=== PATIENT | female | born 1955 | race Caucasian/White ===

== ENCOUNTER → 2017-11-12 08:38 | Outpatient (CLI) | payer BC, SELFPAY ==
--- NOTE | 2017-11-12 08:41 | MM_ITS ---
MM Dig screening mamm BI w/CAD CAD Screening COMPARISON: None, previous mammograms more than 12 years ago and they're not available for review INDICATION: There is history of breast cancer patient maternal grandmother TECHNIQUE: Standard CC and MLO images were obtained. R2 CAD reviewed. FINDINGS: Prominent heterogenic fiber glandular densities are seen in both breast. There is slightly asymmetrically increased glandular densities and/or ductal hyperplasia in the subareolar region of the right breast when compared to the left. Recommend the patient return for spot compression MLO and CC views of the subareolar region right breast and ultrasound may be necessary as well. There are mole markers on each breast. There are couple benign-appearing calcifications in each breast. There are no suspicious microcalcifications. IMPRESSION: Heterogenic fibroglandular densities with possible asymmetric densities right breast BI-RADS Category: 0 Need Additional Imaging Evaluation RECOMMENDED FOLLOW-UP: IMM - IMMEDIATE FOLLOW-UP RECOMMENDED (A letter has been sent to the patient regarding results of the study.)
== END ==
PROVIDERS: Family Provider Family Medicine; PCP Family Medicine; Visit Provider Family Medicine
DX: Z12.31 Encounter for screening mammogram for malignant neoplasm of breast (principal)
CPT/HCPCS: 77067

== ENCOUNTER → 2017-12-12 13:24 | Outpatient (CLI) | payer BC, SELFPAY ==
--- NOTE | 2017-12-12 13:30 | US_ITS ---
MM Dig mamm DX unilat RT CAD, US breast RT complete INDICATION: Follow-up abnormal mammogram ORDERING PHYSICIAN: Maverick Bosch MD PATIENT AGE: 62 years COMPARISON: 11/12/2017 TECHNIQUE: Spot compression views and right breast ultrasound FINDINGS: The asymmetric density in the retroareolar region on the right does appear to compress out as fibroglandular tissue. No malignant appearing mass or malignant appearing calcifications evident. Right breast ultrasound: No discrete mass. No suspicious findings. There is some ductal dilatation in the retroareolar region IMPRESSION: No evidence of malignancy. Asymmetric density in the retroareolar region does appear to represent fibroglandular tissue BI-RADS Category: 3 Probably Benign Finding Short Term Follow-up RECOMMENDED FOLLOW-UP: 6M - 6 MONTH FOLLOW-UP (A letter has been sent to the patient regarding results of the study.)
== END ==
PROVIDERS: Family Provider Family Medicine; PCP Family Medicine; Visit Provider Family Medicine
DX: R92.8 Other abnormal and inconclusive findings on diagnostic imaging of breast (principal)
CPT/HCPCS: 76641; 77065

== ENCOUNTER → 2019-02-05 08:36 | Outpatient (CLI) | payer BC, SELFPAY ==
--- NOTE | 2019-02-05 08:43 | MM_ITS ---
PROCEDURE: MM DIG SCREENING MAMM BI W/CAD CLINICAL INDICATION: SCREENING There is a history of breast cancer patient's paternal grandmother. COMPARISON: [facility] MM Dig screening mamm BI w/CAD from 11/12/2017 DXRT MM Dig mamm DX unilat RT CAD from 12/12/2017 TECHNIQUE: Standard CC and MLO images were obtained. R2 CAD reviewed. FINDINGS: Moderate diffuse fibroglandular densities are seen in both breast. There benign-appearing calcification in each breast. There are 2 mole markers left breast. There is a somewhat irregular asymmetric glandular density outer quadrant left breast just deep to the nipple. This was seen previously but shows slightly more irregular borders on today's study. Recommend the patient return for spot compression CC view and 90 degree lateral view and ultrasound may be necessary as well. There are no suspicious microcalcifications. IMPRESSION: Moderate diffuse breast density with possible asymmetric density versus architectural distortion left breast BI-RAD Category: 0 Need Additional Imaging Evaluation FOLLOW-UP: IMM Immediate Follow-up Recommended (A letter has been sent to the patient regarding results of the study.) Dictated by: Dr. Mk Otero MD 02/06/2019 15:[address] Mk Otero MD in [place] 02/06/2019 15:36
== END ==
PROVIDERS: PCP Family Medicine; Referring Provider Family Medicine; Visit Provider Family Medicine
DX: Z12.31 Encounter for screening mammogram for malignant neoplasm of breast (principal)
CPT/HCPCS: 77067

== ENCOUNTER → 2019-04-09 13:57 | Outpatient (CLI) | payer BC, SELFPAY ==
--- NOTE | 2019-04-09 14:05 | MM_ITS ---
PROCEDURE: MM DIG MAMM DX UNILAT LT CAD CLINICAL INDICATION: ABN MAMM Follow-up abnormal mammogram. COMPARISON: [facility] MM Dig screening mamm BI w/CAD from 11/12/2017 DXRT MM Dig mamm DX unilat RT CAD from 12/12/2017 MM DIG SCREENING MAMM BI W/CAD from 02/05/2019 US BREAST LT COMPLETE from 04/09/2019 TECHNIQUE: Problem solving views along with 3D tomography was performed. The the the FINDINGS: Report is delayed as the patient was asked to return for an additional view and was only able to return on 04/28/2019. The asymmetric density in the outer aspect of the left breast does appear to compress out as fibroglandular tissue. No malignant appearing mass or malignant-appearing microcalcification is evident. IMPRESSION: BI-RAD Category: 3 Probably Benign Finding Short Term Follow-up FOLLOW-UP: 6M 6Month Follow-up (A letter has been sent to the patient regarding results of the study.) Dictated by: uDtch Rodriguez MD 05/01/2019 07:36 Electronically signed by Dutch Rodriguez MD in [place] 05/01/2019 07:36
== END ==
PROVIDERS: PCP Family Medicine; Visit Provider Family Medicine
DX: R92.8 Other abnormal and inconclusive findings on diagnostic imaging of breast (principal)
CPT/HCPCS: 76641; 77061; 77065; G0279

== ENCOUNTER → 2019-04-29 11:04 | Outpatient (CLI) | payer BC, SELFPAY | PROVIDERS: PCP Family Medicine; Visit Provider Family Medicine | DX: R92.8 Other abnormal and inconclusive findings on diagnostic imaging of breast (principal) ==

== ENCOUNTER 2019-09-18 13:24 | Emergency (ER) | payer BC, SELFPAY ==
[2019-09-18 13:36] VITALS: BP 110/65; PULSE 76; RESP 20; TEMP 37; O2SAT 97; BMI 21.1
--- NOTE | 2019-09-18 13:36 | XR_ITS ---
PROCEDURE: XR HIP RT 2-3V W/PELVIS CLINICAL INDICATION: pain Posttraumatic pain COMPARISON: No exams were available for comparison FINDINGS: No fracture or dislocation is evident. No significant degenerative change. No lytic or blastic change. Unremarkable soft tissues. IMPRESSION: No acute findings. Dictated by: Dutch Rodriguez MD 09/19/2019 08:40 Electronically signed by Dutch Rodriguez MD in [place] 09/19/2019 08:40
--- NOTE | 2019-09-18 13:36 | XR_ITS ---
PROCEDURE: XR WRIST RT MIN 3V CLINICAL INDICATION: injury Posttraumatic pain COMPARISON: XR HAND RT MIN 3V from 09/18/2019 FINDINGS: There is a nondisplaced transverse fracture involving the distal radius approximately 1 cm proximal to the articular surface. There is some soft tissue swelling dorsally at the wrist. No other significant anomalies are evident. IMPRESSION: Nondisplaced the transverse fracture of the distal radius Dictated by: Dutch Rodriguez MD 09/19/2019 08:39 Electronically signed by Dutch Rodriguez MD in [place] 09/19/2019 08:39
--- NOTE | 2019-09-18 14:46 | HMH.EDUTC ---
[facility] [place] Disposition Clinical Impression: Right hip pain Fracture of right distal radius Qualifiers: Encounter type: initial encounter Fracture type: closed Fracture morphology: unspecified fracture morphology Qualified Code(s): S52.501A - Unspecified fracture of the lower end of right radius, initial encounter for closed fracture Fall Qualifiers: Encounter type: initial encounter Qualified Code(s): W19.XXXA - Unspecified fall, initial encounter Disposition: Home, Self-Care Condition on Discharge: Good Instructions: Wrist Fracture, DI for Wrist Fracture Additional Instructions: Rest the extremity, apply ice for 15 minutes as tolerated three or four times per day, Elevate the extremity as tolerated while you are resting. Take ibuprofen for pain. I sent in a prescription to your pharmacy. Follow up with Dr. Arce. I put in a referral but you need to call her office and schedule an appointment. Follow up with your regular doctor. GO TO THE ER FOR ANY WORSENING SYMPTOMS Prescriptions: Ibuprofen [Ibuprofen 600mg Tablet] 600 mg PO Q6HP PRN #30 tab PRN Reason: Mild Pain Transmission Status: Received by [id number] Referrals: Maverick Bosch MD [Primary Care Provider] - Zulay Arce MD [Physician] - Forms: Work/School Release Time of Disposition: 14:58 Medical Decision Making - Medical Records Medical records reviewed: No: I reviewed the patient's medical records. - Thomas Inquiry Pt receiving controlled substance: No Vital Signs: 09/18/19 13:36 09/18/19 15:02 Temperature 98.6 F 98.6 F Temperature Source Oral Pulse Rate 76 Pulse Rate [Left Brachial] 76 Respiratory Rate 20 20 Blood Pressure 110/65 Blood Pressure [Left Arm] 110/65 Blood Pressure Mean [Left Arm] 80 Blood Pressure Source [Left Arm] Automatic Cuff Blood Pressure Position [Left Arm] Sitting 02 Sat by Pulse Oximetry 97 Oxygen Delivery Method Room Air Orders (Tests/Meds): ED MEDICATIONS Discontinued Medications Generic Name Dose Route Start Last Admin Trade Name Freq PRN Reason Stop Dose Admin Ibuprofen 600 mg 09/18/19 14:45 09/18/19 14:46 Motrin 600mg Tablet PO 09/18/19 14:46 600 mg ONCE ONE Administration ORDERS Category Date Time Status Hip XR right minimum 2 views [XR hip RT 2-3V w/pelvis] Exams 09/18/19 13:36 Taken Stat Wrist XR right minimum 3 views [XR wrist RT min 3V] Exams 09/18/19 14:11 Taken Stat XR hand RT min 3V Stat Exams 09/18/19 13:36 Taken - Radiology Data #1 Image(s): Wrist Image Reviewed: Yes I reviewed the patient's radiology image Preliminary Findings: Abnormal #2 Image(s): Hand Image Reviewed: Yes I reviewed the patient's radiology image Preliminary Findings: Abnormal #3 Image(s): Hip Image Reviewed: Yes I reviewed the patient's radiology image Preliminary Findings: No Fracture Seen [facility] [place] HPI - General Stated complaint: AO 09/18/19 1130 Fell out of trailer, r hip & wrist Time Seen by Provider: 09/18/19 14:46 Mode of Arrival: Ambulatory Source of Information: Patient Limitations: No Limitations Description of Symptoms (Recalled from Triage Doc. by RN): PATIENT C/O RIGHT HIP, WRIST AND HAND PAIN AFTER FALLING OFF OF A TRAILOR WHILE PUTTING UP HAY HEENT Symptoms (Recalled from RN notes): No Resp Symptoms (Recalled from RN notes): No Skin Symptoms (Recalled from RN notes): No MS Symptoms (Recalled from RN notes): Yes Functional Status (Recalled from RN notes): WNL - History of Present Illness Provider Complaint: She was helping to load hay for her horses when she fell backwards off the trailer. She came down on her right forearm and hip. She c/o right wrist pain and swelling. - Related Data Previous Rx's Medication Instructions Recorded Ibuprofen [Ibuprofen 600mg 600 mg PO Q6HP PRN #30 tab 09/18/19 Tablet] Allergies Allergy/AdvReac Type Severity Reaction Status Date / Time N
[2019-09-18 15:02] VITALS: BP 110/65; PULSE 76; RESP 20; TEMP 37; O2SAT 97
== END 2019-09-18 15:06 | disposition home or self-care (01) ==
PROVIDERS: Emergency Provider Nurse Practitioner Family; PCP Family Medicine
DX: S52.501A Unspecified fracture of the lower end of right radius, initial encounter for closed fracture (principal); S70.01XA Contusion of right hip, initial encounter; W17.89XA Other fall from one level to another, initial encounter; Y92.73 Farm field as the place of occurrence of the external cause; F17.210 Nicotine dependence, cigarettes, uncomplicated
CPT/HCPCS: 29125; 73110; 73130; 73502; 99202

== ENCOUNTER → 2019-09-27 12:52 | Outpatient (CLI) | payer BC, SELFPAY ==
--- NOTE | 2019-09-27 12:55 | MM_ITS ---
PROCEDURE: MM DIG MAMM DX UNILAT LT CAD Digital Breast Tomosynthesis Included CLINICAL INDICATION: 6 MONTH FOLLOW UP COMPARISON: DXRT MM Dig mamm DX unilat RT CAD from 12/12/2017 MM DIG SCREENING MAMM BI W/CAD from 02/05/2019 US BREAST LT COMPLETE from 04/09/2019 MM DIG MAMM DX UNILAT LT CAD from 04/09/2019 US BREAST LT COMPLETE from 09/27/2019 TECHNIQUE: Standard CC and MLO images and 3D Tomosynthesis was obtained. R2 CAD reviewed. FINDINGS: Average fibroglandular tissue. No discrete mass or malignant-appearing microcalcification. The area of asymmetry in the outer aspect of the left breast does appear to compress out is fibroglandular tissue with no discrete mass evident on the tomogram images. Left breast ultrasound: No malignant mass apparent. No cyst evident. There was some slight decreased echogenicity in the 1 o'clock region left breast probably related to fibroglandular tissue. Continued six-month follow-up is suggested. Recommend bilateral mammogram in 6 months with left breast ultrasound IMPRESSION: BI-RAD Category: 3 Probably Benign Finding Short Term Follow-up FOLLOW-UP: 6M 6Month Follow-up (A letter has been sent to the patient regarding results of the study.) Dictated by: Dutch Rodriguez MD 10/01/2019 18:32 Electronically signed by Dutch Rodriguez MD in [place] 10/01/2019 18:32
== END ==
PROVIDERS: PCP Family Medicine; Visit Provider Family Medicine
DX: R92.8 Other abnormal and inconclusive findings on diagnostic imaging of breast (principal)
CPT/HCPCS: 76641; 77061; 77065; G0279

== ENCOUNTER → 2019-10-22 08:49 | Outpatient (CLI) | payer BC, SELFPAY ==
--- NOTE | 2019-10-22 08:52 | XR_ITS ---
PROCEDURE: XR WRIST RT MIN 3V CLINICAL INDICATION: RT wrist FX FU Follow-up fracture COMPARISON: CR XR WRIST RT MIN 3V from 09/18/2019 CR XR HAND RT MIN 3V from 09/18/2019 FINDINGS: There is periarticular osteopenia involving the distal aspect of the radius and the ulna. Nondisplaced fracture of the distal radius once again noted less apparent Other findings:None. IMPRESSION: Osteopenia with good alignment distal radial fracture Dictated b Dutch Rodriguez MD 10/22/2019 09:36 Dutch Rodriguez MD in [place] 10/22/2019 09:36
== END ==
PROVIDERS: PCP Family Medicine; Visit Provider Orthopaedic Surgery
DX: S52.501A Unspecified fracture of the lower end of right radius, initial encounter for closed fracture (principal)
CPT/HCPCS: 73110

== ENCOUNTER → 2019-11-26 09:12 | Outpatient (CLI) | payer BC, SELFPAY ==
--- NOTE | 2019-11-26 09:17 | XR_ITS ---
PROCEDURE: XR WRIST RT MIN 3V CLINICAL INDICATION: RT wrist FX Fu COMPARISON: CR XR WRIST RT MIN 3V from 09/18/2019 CR XR WRIST RT MIN 3V from 10/22/2019 FINDINGS: There is good alignment. There are mild osteoarthritic changes of the radiocarpal joint with some generalized osteopenia. Previously noted transverse fracture of the distal radius is not readily apparent on today's exam. Other findings:None. IMPRESSION: Healed distal radial fracture Dictated by: Dutch Rodriguez MD 11/26/2019 10:44 Dutch Rodriguez MD in [place] 11/26/2019 10:44
== END ==
PROVIDERS: PCP Family Medicine; Visit Provider Orthopaedic Surgery
DX: S52.501A Unspecified fracture of the lower end of right radius, initial encounter for closed fracture (principal)
CPT/HCPCS: 73110

== ENCOUNTER → 2020-05-19 13:43 | Outpatient (CLI) | payer BC, SELFPAY ==
--- NOTE | 2020-05-19 13:52 | US_ITS ---
PROCEDURE: MM DIG MAMM BI DX W/CAD Digital Breast Tomosynthesis Included CLINICAL INDICATION: 6 MON FOLLOW UP COMPARISON: [facility] MM Dig screening mamm BI w/CAD from 11/12/2017 MG DXRT MM Dig mamm DX unilat RT CAD from 12/12/2017 MG MM DIG SCREENING MAMM BI W/CAD from 02/05/2019 MG MM DIG MAMM DX UNILAT LT CAD from 04/09/2019 MG MM DIG MAMM DX UNILAT LT CAD from 09/27/2019 US US BREAST LT COMPLETE from 09/27/2019 US US BREAST LT COMPLETE from 05/19/2020 TECHNIQUE: Standard images performed along with spot compression views. FINDINGS: Average fibroglandular tissue. Scattered benign-appearing calcifications. Right breast: A 3 mm density is present in the superior aspect of the right breast as seen on the MLO view and may be slightly more prominent. This however is questionable Left breast: No malignant appearing mass. There is faint cluster of calcifications in the central aspect of the left breast as seen on the cc view. Left breast ultrasound: There is an area of decreased echogenicity once again noted at the 1 o'clock region which may be due to fibroglandular tissue not significantly changed. No suspicious mass is evident. No cyst demonstrated. IMPRESSION: Probably benign findings. Recommend bilateral 6 month follow-up regarding the nodular density in the right breast superiorly and the left breast calcifications. BI-RAD Category: 3 Probably Benign Finding Short Term Follow-up FOLLOW-UP: 6M 6Month Follow-up (A letter has been sent to the patient regarding results of the study.) Dictated by: Dutch Rodriguez MD 05/29/2020 09:57 Dutch Rodriguez MD in [place] 05/29/2020 09:57
== END ==
PROVIDERS: PCP Family Medicine; Visit Provider Family Medicine
DX: R92.8 Other abnormal and inconclusive findings on diagnostic imaging of breast (principal)
CPT/HCPCS: 76641; 77062; 77066; G0279

== ENCOUNTER → 2020-07-14 09:49 | Outpatient (CLI) | payer BC, SELFPAY ==
[2020-07-14 10:02] LABS: Adenovirus F 40/41, stool Not Detected (NotDetected); Astrovirus Not Detected (NotDetected); Campylobacter Not Detected (NotDetected); Clostridium Difficile A/B, PCR Not Detected (NotDetected); Cryptosporidium Not Detected (NotDetected); Cyclospora Cayetanesis Not Detected (NotDetected); Entamoeba histolytica Not Detected (NotDetected); Enteroaggregative E coli Not Detected (NotDetected); Enteropathogenic E coli Not Detected (NotDetected); Enterotoxigenic E coli Not Detected (NotDetected); Giardia lamblia Not Detected (NotDetected); Norovirus Not Detected (NotDetected); Plesimonas Shigalloides, PCR Not Detected (NotDetected); Rotavirus A Not Detected (NotDetected); Salmonella, PCR Not Detected (NotDetected); Sapovirus Not Detected (NotDetected); Shiga-like toxin E coli Not Detected (NotDetected); Shigella Enterovasive E coli Not Detected (NotDetected); Vibrio Cholerae Not Detected (NotDetected); Vibrio, PCR Not Detected (NotDetected); Yersinia Entercolitica, PCR Not Detected (NotDetected)
== END ==
PROVIDERS: Visit Provider Physician Assistant
DX: K52.9 Noninfective gastroenteritis and colitis, unspecified (principal)
CPT/HCPCS: 87507

== ENCOUNTER → 2020-07-24 08:43 | Outpatient (POV) | payer BC, SELFPAY | PROVIDERS: Visit Provider Nurse Practitioner Family | DX: Z00.00 Encounter for general adult medical examination without abnormal findings (principal) ==

== ENCOUNTER → 2020-08-21 08:37 | Outpatient (CLI) | payer BC, SELFPAY ==
--- NOTE | 2020-08-21 08:46 | CT_ITS ---
PROCEDURE: CT ABDOMEN PELVIS WO/W CON CLINICAL INDICATION: gross hematuria Rt flank pain No prior COMPARISON: No exams were available for comparison TECHNIQUE: IV Contrast: 75ML Isovue 370 Oral Contrast None Axial images obtained with sagittal and coronal reformats. All CT scans at the facility use one or more dose reduction, viz: automated exposure control, ma/kV adjustment per patient size (including targeted exams where dose is matched to indication, i.e. head), or iterative reconstruction technique. FINDINGS: LOWER THORAX: No acute finding ABDOMEN & PELVIS: There are several hypodensities of the liver which may be due to cyst. There are located in the left and right hepatic lobe measuring to 9 mm in the right hepatic lobe and 7 mm in the left hepatic lobe. The gallbladder, spleen, and adrenal glands have an unremarkable appearance. The pancreatic duct is slightly prominent measuring to 4 mm in the tail the pancreas. There is a focal area of decreased attenuation at the junction of the body and tail the pancreas measuring approximately 10 mm. Further evaluation with MRI suggested. No renal or ureteral calculus evident. No hydronephrosis. No renal mass urinary bladder is contracted with thickened wall. No intestinal obstruction or free air. Bowel gas pattern is nonspecific. There are few scattered air-fluid levels within nondistended small bowel. There is a mild amount of retained colonic feces. No evidence of appendicitis. No evidence of diverticulitis. There is degenerative disc disease at L2-L3 with 4 mm retrolisthesis of L2. IMPRESSION: 1. No evidence of renal or ureteral calculi. No hydronephrosis. 2. There is urinary bladder wall thickening which may be seen with incomplete distension, chronic outflow obstruction, or cystitis. 3. Prominent pancreatic duct with 10 mm hypodensity at the junction of body and tail the pancreas. Recommend MRI of the pancreas without and with gadolinium enhancement with MRCP for further evaluation. Dictated by: Dutch Rodriguez MD 08/22/2020 08:36 Dutch Rodriguez MD in [place] 08/22/2020 08:36
[2020-08-21 09:06] LABS: Blood Urea Nitrogen 16 mg/dl (7-17); Estimated Glomerular Filt Rate 84 ml/min (>60); GFR (African American) 102 ML/MIN (>60)
== END ==
PROVIDERS: PCP Family Medicine; Visit Provider Urology
DX: R31.0 Gross hematuria (principal)
CPT/HCPCS: 36415; 74178; 82565; 84520; Q9967

== ENCOUNTER → 2020-10-18 15:53 | Outpatient (CLI) | payer BC, SELFPAY | PROVIDERS: Visit Provider Urology | DX: Z01.812 Encounter for preprocedural laboratory examination (principal); Z11.52 Encounter for screening for COVID-19; R31.9 Hematuria, unspecified | CPT/HCPCS: U0003 ==

== ENCOUNTER 2020-10-20 08:08 | Day surgery (SDC) | payer BC, SELFPAY ==
[2020-10-18 10:48] VITALS: BMI 18.8
[2020-10-20 08:19] VITALS: BP 116/60; PULSE 63; RESP 18; TEMP 36.1; O2SAT 100
[2020-10-20 08:43] VITALS: BP 131/63; PULSE 56; RESP 20; TEMP 36.3; O2SAT 96
--- NOTE | 2020-10-20 11:07 | HMH.OPNOTE ---
Date of procedure: 10/20/20 Pre-op Diagnosis:: Gross hematuria Post-op Diagnosis:: I urethral inflammation Procedure performed:: Cystoscopy Surgeon:: Russ Bajwa MD Anesthesia: local Estimated blood loss (mL): 0 Clinical Note:: 65-year-old white female with intermittent gross hematuria presents for cystoscopic evaluation. Previous CT scan it showed no urologic abnormalities. Operative findings:: No evidence of a mucosal abnormalities, stones. There was some inflammatory findings at the bladder neck that appeared benign. Operative note:: Patient taken to the cystoscopy suite after informed consent was obtained. She was placed into the frog-leg position on the stretcher and prepped and draped in the standard surgical fashion. 2% lidocaine placed into the urethra and after 5 minutes the flexible cystoscope placed into the urethral meatus and passed into the bladder without difficulty. The bladder was examined in a systematic fashion. There is no evidence of mucosal normalities, stones, diverticula or trabeculation. The ureteral orifices in their normal anatomic position and there was clear efflux of urine from each. Scope was retroflexed showing some inflammation right at the bladder neck and ureteroscopy showed some polyps at the bladder neck. The scope removed patient tolerated the procedure well. We discussed the findings today and she was reassured there is no evidence of any suspicious findings. I would like to rescope her in 6months. Condition: stable Disposition: same day Specimens:: None Complications:: None
== END 2020-10-20 09:10 | disposition home or self-care (01) ==
LOC: OUTP 08:10
PROVIDERS: PCP Family Medicine; Visit Provider Urology
PROC: (CPT 52000; principal; 2020-10-20 08:30)
DX: N30.91 Cystitis, unspecified with hematuria (principal); D41.4 Neoplasm of uncertain behavior of bladder; I10 Essential (primary) hypertension; M19.90 Unspecified osteoarthritis, unspecified site; Z87.39 Personal history of other diseases of the musculoskeletal system and connective tissue; Z72.0 Tobacco use; Z88.0 Allergy status to penicillin; Z79.899 Other long term (current) drug therapy
CPT/HCPCS: 52000

== ENCOUNTER → 2020-12-08 13:36 | Outpatient (CLI) | payer BC, SELFPAY ==
--- NOTE | 2020-12-08 13:38 | MM_ITS ---
PROCEDURE: MM DIG MAMM BI DX W/CAD Digital Breast Tomosynthesis Included RIGHT BREAST ULTRASOUND COMPLETE LEFT BREAST ULTRASOUND COMPLETE CLINICAL INDICATION: 6 MONTH FOLLOW UP COMPARISON: MG MM DIG SCREENING MAMM BI W/CAD from 02/05/2019 MG MM DIG MAMM DX UNILAT LT CAD from 04/09/2019 MG MM DIG MAMM DX UNILAT LT CAD from 09/27/2019 MG MM DIG MAMM BI DX W/CAD from 05/19/2020 US US BREAST LT COMPLETE from 05/19/2020 US US BREAST LT COMPLETE from 12/08/2020 US US BREAST RT COMPLETE from 12/08/2020 TECHNIQUE: Standard CC and MLO images and 3D Tomosynthesis was obtained. R2 CAD reviewed. FINDINGS: The breasts are heterogeneously dense which may obscure small masses. No suspicious appearing mass, malignant-appearing microcalcification, architectural distortion, or skin thickening. There is a stable faint cluster of calcification in the inferior aspect of the left breast at 6 o'clock which appears stable. Small nodular opacity at approximately 3 mm in the superior right breast is unchanged. Right breast ultrasound: No cystic or solid lesions identified. Left breast ultrasound: Hypoechoic nodule at 1 o'clock near the nipple at 7 x 3 mm unchanged suggesting a complicated cyst. No suspicious nodules evident. IMPRESSION: No change with no convincing evidence of malignancy. BI-RAD Category: 3 Probably Benign Finding Short Term Follow-Up FOLLOW-UP: 6M 6 Month Follow-up Recommend bilateral 6 month mammographic and right sonographic follow-up to confirm 1 year stability and put patient back on screening schedule. (A letter has been sent to the patient regarding results of the study.) Dictated by: Dutch Rodriguez MD 12/13/2020 12:06 Dutch Rodriguez MD in [place] 12/13/2020 12:06
== END ==
PROVIDERS: PCP Family Medicine; Visit Provider Family Medicine
DX: R92.8 Other abnormal and inconclusive findings on diagnostic imaging of breast (principal)
CPT/HCPCS: 76641; 77062; 77066; G0279

== ENCOUNTER → 2021-06-15 12:25 | Outpatient (CLI) | payer BC, SELFPAY ==
--- NOTE | 2021-06-15 12:30 | MM_ITS ---
PROCEDURE INFORMATION: Exam: US Left Breast, Complete US Right Breast, Complete MG Bilateral Diagnostic Breast Tomosynthesis Exam date and time: 06/15/2021 12:58 PM Age: 66 years old Clinical indication: Short-term radiographic followup; Bilateral breasts; Abnormal findings on imaging; Left and right; Additional info: 6 month f/u TECHNIQUE: Imaging protocol: Complete ultrasound of all four quadrants of the Left breast and the retroareolar regions, including ultrasound of the axilla when performed. Complete ultrasound of all four quadrants of the Right breast and the retroareolar regions, including ultrasound of the axilla when performed. Bilateral Diagnostic tomosynthesis and 2D mammography including computer-aided detection (CAD) when performed. Unilateral or bilateral exam. COMPARISON: MG MM DIG MAMM DX UNILAT LT CAD 09/27/2019 1:05 PM US BREAST LT COMPLETE 05/19/2020 2:19 PM FINDINGS: MAMMOGRAPHY: The breast tissue is heterogeneously dense, which may obscure small masses. There is no stellate mass, architectural distortion or suspicious microcalcifications in either breast to suggest malignancy. No skin thickening or axillary adenopathy. Previously noted 0.3 cm mass in the right superior breast is not well seen on the current examination. Previously noted faint calcifications in the posterior left 6 o'clock axis are stable finding. ULTRASOUND: Sonographic images of both breasts including the retroareolar regions, all 4 quadrants and the axilla do not demonstrate any solid or cystic masses. No architectural distortion or acoustical shadowing. Cursors were placed over normal fibroglandular structures in the left 1 o'clock axis. No skin thickening or axillary adenopathy. IMPRESSION: No mammographic or sonographic evidence of malignancy. Annual bilateral mammographic screening is recommended unless otherwise clinically indicated. Assessment: BI-RADS Category 2: Benign
== END ==
PROVIDERS: PCP Family Medicine; Visit Provider Family Medicine
DX: R92.8 Other abnormal and inconclusive findings on diagnostic imaging of breast (principal)
CPT/HCPCS: 76641; 77062; 77066; G0279

== ENCOUNTER → 2021-09-24 16:12 | Outpatient (CLI) | payer BC, SELFPAY | PROVIDERS: PCP Family Medicine; Visit Provider Internal Medicine | DX: Z01.812 Encounter for preprocedural laboratory examination (principal); Z20.822 Contact with and (suspected) exposure to COVID-19; Z12.11 Encounter for screening for malignant neoplasm of colon | CPT/HCPCS: C9803; U0003; U0005 ==

== ENCOUNTER 2021-09-26 10:27 | Day surgery (SDC) | payer BC, SELFPAY ==
[2021-09-26 10:39] VITALS: BP 109/42; PULSE 63; RESP 17; TEMP 36.3; O2SAT 96; BMI 18.3
--- NOTE | 2021-09-26 10:52 | HMH.ANESCL ---
[facility] Anesthesia Checklist - Patient Identification Patient Identification: Arm Band, Verbal (Name & ) - Structural Data Admitted From: Home Planned Operative Procedure/s: Colonoscopy Consent for Planned Operative Procedure(s) Verified: Yes Verified Documents: Surgical Consent - NPO Status Verified Time NPO: 04:00 - Airway Assessment C-Spine Mobility Assessed: Yes TMJ Mobility Assessed: Yes - Neurological Assessment Level of Consciousness: Awake, Alert, Appropriate - Anesthesia Plan Anesthesia Risk discussed: Yes ASA Class: II Anesthesia Type: MAC [facility] History I have reviewed the patient's past medical history: Yes Medical History: Reports:: Hypertension Denies:: Cancer, Diabetes Mellitus Type 1, Diabetes Mellitus Type 2, Internal Pacemaker, MRSA, Seizures, Transient Ischemic Attacks (TIA) *Have you ever received a pneumonia vaccine?: No *Have you received a flu vaccine this season?: No Other Medical History: Reports: Arthritis Anesthesia experience/problems:: none Laterality Cases: Bilateral: Carpal Tunnel Release Other Surgeries: Yes: No Previous Surgery, Colonoscopy, Tubal Ligation. No: Pacemaker Amputation: No Fractures: No - *Social History Smoking Status: Current every day smoker Tobacco Type: cigarettes # Packs/Day (cigarettes): 1 #Yrs smoked (if former smoker): 40 Alcohol Intake: never Alcohol Intake Frequency:: other Substance Use Type: denies use *Occupational Status:: employed Housing: house Household Members: spouse *Travel in the last 8 weeks: None Family Hx:: Hypertension
[2021-09-26 11:02] VITALS: O2SAT 97
--- NOTE | 2021-09-26 11:29 | HMH.SCOPE ---
- Procedure: Date: 09/26/21 Patient Date of :: 1955 Procedure Performed:: Colonoscopy Indications:: The patient is a 66 year old who presents for screening colonoscopy Performing Provider:: Kristofer Gaviria MD Referring Provider:: Delfina Haider APRN Sedation:: See RN records Procedure:: After placing the patient in the left lateral decubitus position, the colonoscopy was gently inserted into the rectum and under direct visualization advanced to the cecum which was identified by transillumination in the right lower quadrant, identification of the ileocecal valve, appendiceal orifice, and cecal strap. Color, texture, mucosa, and anatomy of the colon were carefully examined with the scope.. Findings:: Anal canal: normal Rectum: Sessile polyp less than 5 mm in size. Removed with cold snare polypectomy Sigmoid colon: Sessile polyp 6 mm in size. Removed with cold snare polypectomy. Sessile polyp less than 5 mm in size. Removed with cold snare polypectomy. Mild diverticulosis. Tortuous sigmoid colon Descending colon: normal without polyps or inflammatory changes Splenic flexure: normal Transverse colon: normal without polyps or inflammatory changes Hepatic flexure: normal Ascending colon: Sessile polyp less than 5 mm in size. Removed with cold snare polypectomy Cecum: normal Terminal ileum: not visualized Recommendations:: Higher fiber diet Await pathology results Repeat colonoscopy in 3 years Complications:: None Estimated blood obtained (mL): 0
[2021-09-26 11:31] VITALS: BP 80/45; PULSE 60; RESP 18; TEMP 36.3; O2SAT 98
[2021-09-26 11:41] VITALS: BP 80/46; PULSE 57; RESP 18; TEMP 36.3; O2SAT 98
[2021-09-26 11:51] VITALS: BP 113/65; PULSE 68; RESP 18; TEMP 36.3; O2SAT 98
[2021-09-26 12:05] VITALS: BP 118/69; PULSE 69; RESP 18; TEMP 36.3; O2SAT 98
== END 2021-09-26 12:05 | disposition home or self-care (01) ==
LOC: OUTP 10:29
PROVIDERS: PCP Nurse Practitioner Family; Visit Provider Internal Medicine
PROC: 0DJD8ZZ Inspection of Lower Intestinal Tract, Via Natural or Artificial Opening Endoscopic (ICD-10-PCS; CPT 45378; principal; 2021-09-26 11:30)
DX: Z12.11 Encounter for screening for malignant neoplasm of colon (principal); D12.5 Benign neoplasm of sigmoid colon; I10 Essential (primary) hypertension; Z72.0 Tobacco use
CPT/HCPCS: 45385

== ENCOUNTER → 2022-01-09 10:35 | Outpatient (CLI) | payer BC, SELFPAY ==
--- NOTE | 2022-01-09 10:38 | CT_ITS ---
FINAL REPORT CLINICAL HISTORY: TOBACCO USE, 1 PPD x50 YEARS FINDINGS: Low-Dose Chest CT Axial images were obtained from the lung apex to the mid abdomen by computed tomography. Low-dose protocol was utilized. CTDI vol (mGy): 2.90 DLP (mGy-cm): 109.94 There is no axillary adenopathy. There is no hilar or mediastinal adenopathy. The heart is proper size. There is no pericardial or pleural effusion. Lung window images demonstrate mild changes of emphysema with mild pulmonary scarring. There is a 4 mm nodule in the right lower lobe seen on image 61. There are several other less than 5 mm nodules.. Limited images of the upper abdomen are unremarkable. IMPRESSION: 4 mm nodule in the right lower lobe with several other less than 5 mm nodules. Lung RADS category 2. Recommend 12 month follow-up low-dose chest CT. Reviewed, Interpreted and Dictated by Thom Trammell III, MD Transcribed by Paula Aviles Authenticated and [facility]
== END ==
PROVIDERS: PCP Nurse Practitioner Family; Visit Provider Physician Assistant
DX: Z87.891 Personal history of nicotine dependence (principal); Z12.2 Encounter for screening for malignant neoplasm of respiratory organs
CPT/HCPCS: 71271

== ENCOUNTER 2022-06-12 15:49 | Emergency (ER) | payer BC, SELFPAY ==
[2022-06-12 16:10] VITALS: BP 131/52; PULSE 68; RESP 20; TEMP 36.8; O2SAT 98; BMI 18.8
--- NOTE | 2022-06-12 16:31 | EXP.UTC ---
Discharge Plan Disposition Patient Disposition: Home, Self-Care Condition: Good Prescriptions Prescriptions: New promethazine-DM 6.25-15 mg/5 mL Syrup 5 ml PO Q6H PRN (Reason: Cough) Qty: 240 0RF benzonatate [benzonatate] 100 mg capsule 100 mg PO TIDP PRN (Reason: Cough) Qty: 30 0RF methylprednisolone 4 mg Tablets,Dose Pack 4 mg PO DIRECTED Qty: 21 0RF amoxicillin-pot clavulanate 875-125 mg Tablet 1 tab PO Q12H Qty: 20 0RF No Action Align 4 mg capsule 4 mg PO DAILY peg 3350-electrolytes [GaviLyte-G] 236-22.74-6.74 -5.86 gram recon soln 240 ml PO Q10M Qty: 4000 0RF Rx Instructions: see mailed instructions cetirizine 10 MG capsule 10 mg PO DAILY Referrals Follow up/Referrals: Maverick Bosch MD [Primary Care Provider] - See instructions Activity Restrictions/Add. Instructions Additional Instructions/Restrictions: Drink plenty of fluids. Take tylenol or ibuprofen for pain or fever. Take the medications as directed. Follow up with your regular doctor. GO TO THE ER FOR ANY WORSENING SYMPTOMS The cough medication (promethazine dm) will make you drowsy, so don't drive or operate heavy machinery after taking it. Clinical Impressions Clinical Impression: Acute bronchitis, Sinusitis Instructions Patient Instructions: DI for Sinusitis, Sinusitis Discharge ED Provider: Gómez Frazier [facility] General Stated complaint: congestion Mode of Arrival: Ambulatory Source of Information: Patient Limitations: No Limitations Time Seen by Provider: 06/12/22 16:11 Description of Symptoms (Recalled from Triage Doc. by RN): runny, nose and cough HEENT Symptoms (Recalled from RN notes): Yes Resp Symptoms (Recalled from RN notes): No Skin Symptoms (Recalled from RN notes): No MS Symptoms (Recalled from RN notes): No Functional Status (Recalled from RN notes): n/a History of Present Illness Provider Complaint: She states that for the past 2 week she has had sinus congestion and chest congestion. Related Data Home Medications Medication Instructions Recorded Confirmed Bifidobacterium infantis 4 mg 4 mg PO DAILY Supplement 08/07/20 09/26/21 capsule (Align) cetirizine 10 mg capsule 10 mg PO DAILY ALLERGIES 10/18/20 09/26/21 Previous Rx's Medication Instructions Recorded peg 3350-electrolytes 236 240 ml PO Q10M Colonoscopy #4,000 09/19/21 gram-22.74 gram-6.74 gram-5.86 mL gram solution (GaviLyte-G) amoxicillin 875 mg-potassium 1 tab PO Q12H #20 tabs 06/12/22 clavulanate 125 mg tablet benzonatate 100 mg capsule 100 mg PO TIDP PRN Cough #30 caps 06/12/22 methylprednisolone 4 mg tablets in 4 mg PO DIRECTED #21 tabs 06/12/22 a dose pack promethazine-DM 6.25 mg-15 mg/5 mL 5 ml PO Q6H PRN Cough #240 mL 06/12/22 oral syrup Allergies Allergy/AdvReac Type Severity Reaction Status Date / Time Penicillins AdvReac Mild Verified 06/12/22 16:16 Worker's Comp Is this a Worker's Comp case?: [facility] Disclaimer: The information contained in this section may have been updated after the patient was seen, as this information can be updated by other users. Social History Smoking Status: Current every day smoker tobacco type: cigarettes packs per day: 1 alcohol intake: never substance use type: denies use current occupational status: employed Travel in the last 8 weeks: None household members: spouse housing: house caffeine: Yes Medical Decision Making Vital Signs: 06/12/22 16:10 Temperature 98.3 F Temperature Source Oral Pulse Rate [Right Radial] 68 Respiratory Rate 20 Blood Pressure [Right Arm] 131/52 L Blood Pressure Mean [Right Arm] 78 Blood Pressure Source [Right Arm] Automatic Cuff Blood Pressure Position [Right Arm] Sitting 02 Sat by Pulse Oximetry 98 Oxygen Delivery Method Room Air
[2022-06-12 16:44] VITALS: BP 131/52; PULSE 68; RESP 20; TEMP 36.8; O2SAT 98
--- NOTE | 2022-09-05 09:35 | EXP.UTC ---
Discharge Plan Disposition Patient Disposition: Home, Self-Care Condition: Good Prescriptions Prescriptions: New promethazine-DM 6.25-15 mg/5 mL Syrup 5 ml PO Q6H PRN (Reason: Cough) Qty: 240 0RF benzonatate [benzonatate] 100 mg capsule 100 mg PO TIDP PRN (Reason: Cough) Qty: 30 0RF methylprednisolone 4 mg Tablets,Dose Pack 4 mg PO DIRECTED Qty: 21 0RF amoxicillin-pot clavulanate 875-125 mg Tablet 1 tab PO Q12H Qty: 20 0RF No Action Align 4 mg capsule 4 mg PO DAILY peg 3350-electrolytes [GaviLyte-G] 236-22.74-6.74 -5.86 gram recon soln 240 ml PO Q10M Qty: 4000 0RF Rx Instructions: see mailed instructions cetirizine 10 MG capsule 10 mg PO DAILY Referrals Follow up/Referrals: Maverick Bosch MD [Primary Care Provider] - See instructions Activity Restrictions/Add. Instructions Additional Instructions/Restrictions: Drink plenty of fluids. Take tylenol or ibuprofen for pain or fever. Take the medications as directed. Follow up with your regular doctor. GO TO THE ER FOR ANY WORSENING SYMPTOMS The cough medication (promethazine dm) will make you drowsy, so don't drive or operate heavy machinery after taking it. Clinical Impressions Clinical Impression: Acute bronchitis, Sinusitis Instructions Patient Instructions: Sinusitis, DI for Sinusitis Discharge ED Provider: Gómez Frazier [facility] General Stated complaint: congestion Mode of Arrival: Ambulatory Source of Information: Patient Limitations: No Limitations Time Seen by Provider: 06/12/22 16:11 Description of Symptoms (Recalled from Triage Doc. by RN): runny, nose and cough HEENT Symptoms (Recalled from RN notes): Yes Resp Symptoms (Recalled from RN notes): No Skin Symptoms (Recalled from RN notes): No MS Symptoms (Recalled from RN notes): No Functional Status (Recalled from RN notes): n/a History of Present Illness Provider Complaint: She c/o sinus congestion and having a very runny nose for the past 2 days. Related Data Home Medications Medication Instructions Recorded Confirmed Bifidobacterium infantis 4 mg 4 mg PO DAILY Supplement 08/07/20 09/26/21 capsule (Align) cetirizine 10 mg capsule 10 mg PO DAILY ALLERGIES 08/04/21 07/13/22 Previous Rx's Medication Instructions Recorded peg 3350-electrolytes 236 240 ml PO Q10M Colonoscopy #4,000 09/19/21 gram-22.74 gram-6.74 gram-5.86 mL gram solution (GaviLyte-G) amoxicillin 875 mg-potassium 1 tab PO Q12H #20 tabs 06/12/22 clavulanate 125 mg tablet benzonatate 100 mg capsule 100 mg PO TIDP PRN Cough #30 caps 06/12/22 methylprednisolone 4 mg tablets in 4 mg PO DIRECTED #21 tabs 06/12/22 a dose pack promethazine-DM 6.25 mg-15 mg/5 mL 5 ml PO Q6H PRN Cough #240 mL 06/12/22 oral syrup Allergies Allergy/AdvReac Type Severity Reaction Status Date / Time Penicillins AdvReac Mild Verified 06/12/22 16:16 Worker's Comp Is this a Worker's Comp case?: [facility] Disclaimer: The information contained in this section may have been updated after the patient was seen, as this information can be updated by other users. Social History Smoking Status: Current every day smoker tobacco type: cigarettes packs per day: 1 alcohol intake: never substance use type: denies use current occupational status: employed Travel in the last 8 weeks: None household members: spouse housing: house caffeine: Yes ROS Obtained: Yes All systems reviewed & no additional complaints except as documented Constitutional Constitutional: Reports poor appetite Eyes Eyes: Reports system reviewed and no additional complaints, except as documented ENT Ears, Nose, Mouth, and Throat: Reports as per HPI Cardiovascular Cardiovascular: Reports system reviewed and no additional complaints, except as documented and Denies chest pain Respiratory Respiratory: Gonzalezies manuel
== END 2022-06-12 16:44 | disposition home or self-care (01) ==
PROVIDERS: Emergency Provider Nurse Practitioner Family; PCP Family Medicine
DX: J20.9 Acute bronchitis, unspecified (principal); J01.90 Acute sinusitis, unspecified; F17.210 Nicotine dependence, cigarettes, uncomplicated
CPT/HCPCS: 99212; 99214; G0463

== ENCOUNTER → 2022-07-12 09:44 | Outpatient (CLI) | payer BC, SELFPAY ==
--- NOTE | 2022-07-12 09:48 | MM_ITS ---
PROCEDURE INFORMATION: Exam: MG Bilateral Screening 3D Mammography Exam date and time: 07/12/2022 9:47 AM Age: 67 years old Clinical indication: Screening examination TECHNIQUE: Imaging protocol: Bilateral Screening tomosynthesis and 2D mammography including computer-aided detection (CAD) when performed. COMPARISON: 1. MG MM DIG MAMM BI DX W/CAD 06/15/2021 12:58 PM 2. MG MM DIG MAMM BI DX W/CAD 12/08/2020 1:54 PM FINDINGS: MAMMOGRAPHY: Breast composition: There are scattered areas of fibroglandular density. Mass: Questionable 1.3 cm mass in the posterior third of the left upper outer quadrant Architectural distortion: None. Calcifications: No suspicious calcifications. Asymmetric density: None. Skin thickening: None. Axillary adenopathy: None. IMPRESSION: Patient to be recalled for spot compression views of the left breast in the CC and MLO projections, a full 90 degree lateral view, and left breast ultrasound for further evaluation of a left breast mass. ASSESSMENT: BI-RADS Category 0: Incomplete- Need Additional Imaging Evaluation and/or Prior Mammograms for Comparison
== END ==
PROVIDERS: PCP Family Medicine; Visit Provider Family Medicine
DX: Z12.31 Encounter for screening mammogram for malignant neoplasm of breast (principal)
CPT/HCPCS: 77063; 77067

== ENCOUNTER → 2022-07-29 14:34 | Outpatient (CLI) | payer BC, SELFPAY ==
--- NOTE | 2022-07-29 14:40 | US_ITS ---
PROCEDURE INFORMATION: Exam: US Left Breast, Complete MG Left Diagnostic Breast Tomosynthesis Exam date and time: 07/29/2022 2:42 PM Age: 67 years old Clinical indication: Patient recalled on the basis of a screening mammogram for further evaluation; Left breast; mass TECHNIQUE: Imaging protocol: Complete ultrasound of all four quadrants of the left breast and the retroareolar regions, including ultrasound of the axilla when performed. Left Diagnostic tomosynthesis and 2D mammography including computer-aided detection (CAD) when performed. Unilateral or bilateral exam. COMPARISON: 1. MG MM DIG SCREENING MAMM BI W/CAD 07/12/2022 9:47 AM 2. MG MM DIG MAMM BI DX W/CAD 06/15/2021 12:58 PM FINDINGS: MAMMOGRAPHY: Digital diagnostic spot compression views of the posterior left upper outer quadrant demonstrates a persistent nodular asymmetry only well seen in the craniocaudal projection ULTRASOUND: Sonographic images of the left breast including the retroareolar region, all 4 quadrants and the axilla do not demonstrate any solid or cystic masses. No architectural distortion or acoustical shadowing. No skin thickening or axillary adenopathy. IMPRESSION: Probably benign nodular asymmetry in the deep left upper breast best seen in the craniocaudal projection. A precautionary six-month follow-up diagnostic left mammogram is recommended to ensure stability of the pattern identified ASSESSMENT: BI-RADS Category 3: Probably benign
== END ==
PROVIDERS: PCP Family Medicine; Visit Provider Physician Assistant
DX: R92.8 Other abnormal and inconclusive findings on diagnostic imaging of breast (principal)
CPT/HCPCS: 76641; 77061; 77065; G0279

== ENCOUNTER → 2023-01-30 13:35 | Outpatient (CLI) | payer MEDICARE, OTHER, SELFPAY ==
--- NOTE | 2023-01-30 13:39 | MM_ITS ---
PROCEDURE INFORMATION: Exam: US Left Breast, Complete MG Left Diagnostic Breast Tomosynthesis Exam date and time: 01/30/2023 2:20 PM Age: 67 years old Clinical indication: Short-term radiographic followup; Abnormal findings on imaging; Left TECHNIQUE: Imaging protocol: Complete ultrasound of all four quadrants of the left breast and the retroareolar regions, including ultrasound of the axilla when performed. Left Diagnostic tomosynthesis and 2D mammography including computer-aided detection (CAD) when performed. Unilateral or bilateral exam. COMPARISON: US BREAST LT COMPLETE 07/29/2022 3:26 PM FINDINGS: MAMMOGRAPHY: The breast is heterogeneously dense, which may obscure small masses. Previously noted nodular asymmetry in the posterior left upper outer quadrant only well seen in the craniocaudal projection is now seen in the orthogonal MLO view. It is a partially circumscribed partially lobulated mass measuring 1.0 cm in greatest dimension. There is no stellate mass, architectural distortion or suspicious microcalcifications to suggest malignancy. No skin thickening or axillary adenopathy. ULTRASOUND: Sonographic images of the left breast including the retroareolar region, all 4 quadrants and the axilla do not demonstrate any solid or cystic masses. No architectural distortion or acoustical shadowing. No skin thickening or axillary adenopathy. IMPRESSION: The nodular asymmetry seen on prior mammogram is now seen in 2 distinct orthogonal projections. It is only seen on mammography. The finding is radiographically indeterminate. There is no sonographic correlate. Stereotactic core biopsy is recommended for further evaluation. ASSESSMENT: BI-RADS Category 4: Suspicious
== END ==
PROVIDERS: PCP Family Medicine; Visit Provider Physician Assistant
DX: R92.8 Other abnormal and inconclusive findings on diagnostic imaging of breast (principal)
CPT/HCPCS: 76641; 77061; 77065; G0279

== ENCOUNTER → 2023-02-17 08:02 | Outpatient (CLI) | payer MEDICARE, OTHER, SELFPAY ==
--- NOTE | 2023-02-17 08:06 | MM_ITS ---
FINAL REPORT CLINICAL HISTORY: .clip placement post bx, abnormal mammogram. Biopsy with clip placement. FINDINGS: MAMMOGRAM LEFT TECHNIQUE: Standard digital 2-D views COMPARISON: Prebiopsy exam 01/30/2023 DENSITY: There are scattered areas of fibroglandular density FINDINGS: Post biopsy marker clip is noted lateral to the area of focal asymmetry located in the left upper outer quadrant at approximately 1:00.. Postbiopsy changes are noted. IMPRESSION: Biopsy marker clip in good position RECOMMENDATION: 6 month mammographic follow-up left breast as part of normal post benign biopsy surveillance Authenticated and [facility]
--- NOTE | 2023-02-17 08:06 | MM_ITS ---
FINAL REPORT CLINICAL HISTORY: .LT BREAST NODULE FINDINGS: STEREOTACTIC GUIDED RIGHT BREAST BIOPSY, CLIP PLACEMENT, AND POST BIOPSY MAMMOGRAM Indication: Abnormal mammogram/density/mass Findings: The stereotactic guided breast biopsy procedure was explained in detail to the patient including potential risk and benefits. The patient voiced an understanding of the procedure, was given an opportunity to ask questions, after which informed consent was obtained. The patient was positioned prone upon the stereotactic unit in the upright position. The breast was prepped in the usual sterile fashion. Subcutaneous soft tissues were anesthetized with lidocaine with epinephrine. A lateral to medial approach was utilized targeting the focal asymmetry. Subsequently, with intermittent stereotactic guidance, the stereotactic biopsy needle was advanced into the breast in the region of the mammographic abnormality corresponding to recent diagnostic mammogram. Multiple vacuum assisted core samples were obtained. Sampling was thought to be adequate and the biopsy clip marker was deployed in the region of biopsy. Additional imaging as detailed below was performed. Post procedure routine CC and MLO view mammogram: Post biopsy changes. Biopsy marker clip noted to be in the appropriate location. Patient tolerated the procedure well. No immediatecomplications. IMPRESSION: 1. Technically successful stereotactic guided biopsy of focal asymmetry left breast 2. Biopsy marker clip deployed 3. Post biopsy mammogram obtained as above Histopathology results reveal benign findings with fragments of a fibroadenoma without atypical hyperplasia or carcinoma. Pathology is concordant with mammographic findings. Recommend 6 month mammographic follow-up as routine benign postbiopsy surveillance. Authenticated and [facility]
== END ==
PROVIDERS: PCP Family Medicine; Visit Provider Physician Assistant
DX: R92.8 Other abnormal and inconclusive findings on diagnostic imaging of breast (principal)
CPT/HCPCS: 19081; 77065

== ENCOUNTER 2023-08-21 12:53 | Outpatient (CLI) | payer MEDICARE, OTHER, SELFPAY ==
--- NOTE | 2023-08-21 12:58 | MM_ITS ---
PROCEDURE INFORMATION: Exam: MG Left Diagnostic Breast Tomosynthesis Exam date and time: 08/21/2023 12:50 PM Age: 68 years old Clinical indication: Short-term radiographic followup; Left breast; Post biopsy TECHNIQUE: Imaging protocol: Left Diagnostic tomosynthesis and 2D mammography including computer-aided detection (CAD) when performed. Unilateral or bilateral exam. COMPARISON: 1. MG MM CLIP PLACEMENT LT 02/17/2023 9:27 AM 2. MG MM STEREOTACTIC LOC LT 02/17/2023 8:55 AM FINDINGS: MAMMOGRAPHY: Breast composition: The breasts are heterogeneously dense, which may obscure small masses. Breast mammogram findings: There is no stellate mass, architectural distortion or suspicious microcalcifications to suggest malignancy. A clip aponte the site of prior biopsy in the left upper outer quadrant on routine and spot compression views. No skin thickening or axillary adenopathy. IMPRESSION: No mammographic evidence of malignancy. Annual bilateral mammographic screening is recommended in January 2024 unless otherwise clinically indicated. ASSESSMENT: BI-RADS Category 1: Negative
== END 2023-08-21 23:59 | disposition home or self-care (01) ==
LOC: RAD 12:53
PROVIDERS: PCP Physician Assistant; Visit Provider Physician Assistant
DX: R92.8 Other abnormal and inconclusive findings on diagnostic imaging of breast (principal)
CPT/HCPCS: 77061; 77065; G0279

== ENCOUNTER 2023-12-10 11:20 | Outpatient (CLI) | payer MEDICARE, OTHER, SELFPAY ==
--- NOTE | 2023-12-10 11:29 | XR_ITS ---
FINAL REPORT CLINICAL HISTORY: LEFT HAND PAIN COMPARISON: None FINDINGS: Three views show no evidence of acute displaced fracture or dislocation of the visualized bony architecture. There are degenerative changes in the DIP joints and to a lesser extent the PIP joints. No evidence of bony erosions is seen. There is mild osteopenia. IMPRESSION: There are degenerative changes in the DIP joints and to a lesser extent the PIP joints without bony erosions. Mild osteopenia. Reviewed, Interpreted and Dictated by Belinda Alanis MD Transcribed by Linda Marsh Authenticated and [facility]
== END 2023-12-10 23:59 | disposition home or self-care (01) ==
LOC: RAD 11:22
PROVIDERS: PCP Family Medicine; Visit Provider Family Medicine
DX: M79.642 Pain in left hand (principal)
CPT/HCPCS: 73130

== ENCOUNTER 2024-11-18 07:28 | Outpatient (CLI) | payer MEDICARE, OTHER, SELFPAY ==
--- OUTSIDE RECORDS SUMMARY | 2024-04-26 11:15 | XMS_ITS ---
Author Organization [facility] Address [address] [facility] [address] [facility] [address] [place] [phone] Care Team Providers Care Information Writer Name Role Phone Ephraim Bosch Primary Care Provider [phone] Shital Weldon Unavailable [phone] Allergies Allergen (clinical drug ingredient) Drug/Non Drug [...] Location Date Provider Diagnosis [facility] [address] [facility] 36 [facility] [address] [place] [phone] 04/26/2024 Shital Weldon Cellulitis L03.90 an d [...] Notes * RADHA ChayaDOB:[birth year] (69 yo F)Acc No.[id number]:04/26/2024 Progress Notes Patient: Chaya DOWENY Provider: TERRA Torrez :1955 A ge:68 Y S ex:Female Date:04/26/2024 Address:[address] [place] [address] [address] , [place], [id number] Pcp:Ephraim Bosch Subjective: * Chief Complaints: * [...] coffee. Home smoke detector use: yes. Occupation: [employer]. Alcohol: No. * Medications: T aking Womens [...] * Images: Billing Information: * Visit Code: 40641 Office Visit, Est Pt., Level 3. * Procedure Codes: G2211 Complex e/m visit add on. 3074F SYST BP LT 130 MM HG. 3078F DIAST BP < 80 MM HG. * Electronic signature of Heidi Weldon APRN on 11/18/2024 at 07:31 AM EDT Sign off status: Pending * Provider: TERRA Torrez Date: 0 04/26/2024 Generated for Eneida simms/Melida/Mariana on: 0 11/18/2024 07:31 AM EDT History and Physical Notes * [...]
--- OUTSIDE RECORDS SUMMARY | 2024-05-07 06:15 | XMS_ITS ---
Author Organization [facility] Address [address] [facility] 2[address] [place] [phone] Care Team Providers Care Soft Work Wrapper Examiner Name Role Phone Ephraim Bosch Primary Care Provider [phone] Erum Mancuso [phone] Allergies Allergen (clinical drug ingredient) Drug/Non Drug [...] 05/07/2024 Encounters Encounter Location Date Provider Diagnosis [facility] [address] [facility] [address] [place] [phone] 05/07/2024 Erum Mancuso Cellulitis L03.90 an d [...] Notes * Chaya GARCIADOB:[birth year] (69 yo F)Acc No.[id number]:05/07/2024 Progress Notes Patient: Chaya DOWNEY Provider: GERRY Alvarenga :1955 A ge:68 Y S ex:Female Date:05/07/2024 Address:[address], [place], [id number] Pcp:Ephraim Bosch Subjective: * Chief Complaints: * [...] coffee. Home smoke detector use: yes. Occupation: [employer]. Alcohol: No. * Medications: T aking Womens [...] * Images: Billing Information: * Visit Code: 40413 Office Visit, Est Pt., Level 3. * Procedure Codes: G2211 Complex e/m visit add on. 3074F SYST BP LT 130 MM HG. 3079F DIAST BP 80-89 MM HG. * Electronic signature of GERRY Parekh on 11/18/2024 at 07:31 AM EDT Sign off status: Pending * Provider: GERRY Alvarenga Date: 0 05/07/2024 Generated for Eneida simms/Melida/eTransmitting on: 0 11/18/2024 07:31 AM EDT History [...]
--- OUTSIDE RECORDS SUMMARY | 2024-05-18 06:00 | XMS_ITS ---
Author Organization [facility] Address [facility] [facility] [address] [place] [phone] Care Team Providers Care Teachers Aide Name Role Phone Ephraim Bosch Primary Care Provider Shital Weldon [phone] Allergies Allergen (clinical drug ingredient) Drug/Non Drug Allergy documented on EMR Reaction Allergy Type Onset Date Status Substance with penicillin structure and antibacterial mechanism of action (substance) Penicillins yeast infection Drug Allergy Active REASON FOR VISIT 3 week f/u Medications Medication SIG (Take, Route, Frequency, Duration) Notes Start Date End Date Status Womens Multivitamin - as directed Orally Active Clobetasol Propionate 0.05 % 1 application Externally Twice a day; Duration: 20 day(s) 2024 Active Align 4 MG 1 cap(s) orally once a day Active Flonase Allergy Relief 50 MCG/ACT 1 spray in each nostril Nasally Once a day 06/11/2023 Active Vital Signs Blood pressure systolic 126 mm Hg 05/19/19 25 Blood pressure diastolic 78 mm Hg 025 Heart Rate 88 /min 2024 Height 63.50 in 2024 Weight 119 lbs 2024 BMI 20.75 kg/m2 2024 Encounters Encounter Location Date Provider Diagnosis [facility] [address] [place] [phone] 2024 Shital Weldon Dermatitis L30.9 Assessments Encounter Date Diagnosis (ICD Code) Assessment Notes Treatment Notes Treatment Clinical Notes Section Notes 2024 Dermatitis (ICD-10 - L30.9) will disc use of the plastic gloves; increased potency of steroid; will continue this TX for 2 weeks; if not improved will need to see derm Plan Of Treatment Medication Medication Name Sig Start Date Stop Date Notes Triamcinolone Acetonide 0.1 % 1 applicat ion Externally three times a day, prn Clobetasol Propionate 0.05 % 1 applicati on Externally Twice a day; Duration: 20 day(s) 2024 Treatment Notes Assessment Notes Dermatitis will disc use of the plastic gloves; increased potency of steroid; will continue this TX for 2 weeks; if not improved will need to see derm Next Appt Details Follow Up: prn, Reason: Progress Notes * Chaya GARCIADOB:[birth year] (69 yo F)Acc No.[id number]:2024 Patient: Chaya DOWNEY Provider: TERRA Torrez :1955 A ge:69 Y S ex:Female Date:2024 Address:[facility] [place] [address] , [facility] [place] Pcp:Ephraim Bosch Subjective: * Chief Complaints: * 1 . 3 week f/u. * HPI: D ermatology: 69 year old female presents with c/o Dry Skin. c/o Cellulitis P t presents today for a follow up. Pt sts that she has been using creams and has completed the abx. Pt sts that she is still having some drying and cracking. * ROS: D ERMATOLOGY: no R ilana. [...] coffee. Home smoke detector use: yes. Occupation: [employer]. Alcohol: No. * Medications: T aking Womens Multivitamin - Tablet as directed Orally , Taking Flonase Allergy Relief 50 MCG/ACT Suspension 1 spray in each nostril Nasally Once a day , Taking Align 4 MG Capsule 1 cap(s) orally once a day , Taking Triamcinolone Acetonide 0.1 % Cream 1 application Externally three times a day, prn , Discontinued Bactrim DS 800-160 MG Tablet 1 tablet Orally Two times a day , Medication List reviewed and reconciled with the patient * Allergies: P enicillins: yeast infection . Objective: * Vitals: W t:119, Temp:98.0, BP:126/78, HR:88, Nurse:ARIANNE, Ht: 63.50, BMI:20.75. * Examination: D ermatology: Extremities: bilateral hands with erythema on both sides; noted 2-3 small cracks; skin is dry; no edema. Assessment: * Assessment: 1. D ermatitis - L30.9 (Primary) Plan: * Treatment: * Procedure Codes: G 2211 Complex e/m visit add on, 3074F SYST BP LT 130 MM HG, 3078F DIAST BP < 80 MM HG * Follow Up: p rn * Images: Billing Information: * Visit Code: 99791 Office Visit, Est Pt., Level 3. * Procedure Codes: G2211 Complex e/m visit add on. 3074F SYST BP LT 130 MM HG. 3078F DIAST BP < 80 MM HG. * Electronic signature of Heidi Weldon APRN on 11/18/2024 at 07:30 AM EDT Sign off status: Pending * Provider: TERRA Torrez Date: 0 2024 Generated for Eneida Chan/Manuelitoitting on: 0 11/18/2024 07:30 AM EDT History and Physical Notes * HPI (History of Present Illness) Category Sub-Category Detail Notes Category Not es Dermatology Dry Skin Cellulitis Pt presents today fo r a follow up. Pt sts that she has been using creams and has completed the abx. Pt sts that she is still having some drying and cracking Examination Category Sub-Category Detail Notes Category Not es Dermatology Extremities: bilateral hands with erythema on both sides; noted 2-3 small cracks; skin is dry; no edema
--- OUTSIDE RECORDS SUMMARY | 2024-06-22 06:00 | XMS_ITS ---
Author Organization [place] Address [address] [facility] [address] [place] [id number] Care Team Providers Care Utilization Management Um Nurse Name Role Phone Ephraim Bosch Primary Care Provider Shital Weldon Unavailable [phone] Allergies Allergen (clinical drug ingredient) Drug/Non Drug [...] Encounter Location Date Provider Diagnosis [place] [facility] [address] [place] [phone] 06/22/2024 Shital Weldon Contact dermatitis L25.9 and [...] Notes * Chaya GARCIADOB:[birth year] (69 yo F)Acc No.[id number]:06/22/2024 Progress Notes Patient: Chaya DOWNEY Provider: TERRA Torrez :1955 A ge:69 Y S ex:Female Date:06/22/2024 Address:[address], [id number] Pcp:Ephraim Bosch Subjective: * Chief Complaints: * [...] coffee. Home smoke detector use: yes. Occupation: [employer]. Alcohol: No. * Medications: T aking Womens [...] S pecify :bilateral hands 2 . B [place] 20.0-20.9, adult - Z68.20 Plan: * Treatment: [...] * Images: Billing Information: * Visit Code: 40024 Office Visit, Est Pt., Level 3. * Procedure Codes: G2211 Complex e/m visit add on. 3074F SYST BP LT 130 MM HG. 3078F DIAST BP < 80 MM HG. * Electronic signature of Heidi Weldon APRN on 11/18/2024 at 07:30 AM EDT Sign off status: Pending * Provider: TERRA Torrez Date: 0 06/22/2024 Generated for Eneida simms/Melida/Manuelitoitting on: 0 11/18/2024 07:30 AM EDT History and Physical Notes * HPI (History of Present Illness) Category Sub-Category Detail Notes Category Not es [facility] [...]
--- NOTE | 2024-11-18 07:29 | CT_ITS ---
FINAL REPORT TECHNIQUE: Axial images were obtained from the lung apex to the mid abdomen by computed tomography. This study was performed with techniques to keep radiation doses as low as reasonably achievable (ALARA). Individualized dose reduction techniques using automated exposure control or adjustment of mA and/or kV according to the patient's size were employed. CLINICAL HISTORY: SCREENING smoker 1 ppd x 54 years COMPARISON: 01/09/2022 FINDINGS: CHEST CT LOW DOSE CTDI vol (mGy): 2.90 DLP (mGy-cm): 104.73 There is no axillary adenopathy. There is no hilar or mediastinal adenopathy. The heart is normal in size. There is no pericardial or pleural effusion. There are moderate changes of centrilobular emphysema, similar to prior. Noncalcified nodule in the right lower lobe measures 4 mm is best seen on image 54 of series 4. Limited images of the upper abdomen are unremarkable. IMPRESSION: Stable right lower lobe nodule. Lung RADS category 1. Recommend 12 month follow-up low-dose chest CT. Reviewed, Interpreted and Dictated by Jones Monique MD Transcribed by Delfina Salmeron Authenticated and [facility]
--- OUTSIDE RECORDS SUMMARY | 2024-11-18 07:30 | XMS_ITS ---
Author Organization Unknown Vital Signs BpStanding BpSitting BpSupine Date Temperature HeartRate Weight Hei ght Spo2 Respiration Bmi HeadCircumference FieldCount TimeRecorded NeckCircumferen ce WaistCircumference Pulse 122/78 06/22 00:00 :00 97.9 81 118,6.4 0 5,3 20.6 4 6 10/22/2024 10:00:00 126/78 05/18 00:00 :00 98.0 88 119,0 5,3 20.7 5 6 10/22/2024 10:00:00 120/80 05/07 00:00 :00 97.9 82 120,3.2 0 5,3 20.9 6 6 10/22/2024 10:15:00 120/74 04/26 00:00 :00 98.3 69 119,3.2 0 5,3 20.7 8 6 10/22/2024 15:15:00 124/80 12/09 00:00 :00 98.3 64 118,6.4 0 5,3 20.6 4 6 10/22/2024 10:30:00 126/78 11/10 00:00 :00 98.5 76 119,0 5,3 20.7 5 6 10/22/2024 10:30:00
--- OUTSIDE RECORDS SUMMARY | 2024-11-18 07:31 | XMS_ITS | Patient Health Record ---
Author Organization [facility] [place] Address [address] [place] [id number] Care Team Providers Care Food Service Attendant Name Role Phone Ephraim Bosch Primary Care Provider Carlo Healy Unavailable [phone] Shital Weldon Unavailable [phone] Erum Mancuso Unavailable [phone] Allergies Allergen (clinical drug ingredient) Drug/Non Drug Allergy documented on EMR Reaction Allergy Type Onset Date Status Substance with penicillin structure and antibacterial mechanism of action (substance) Penicillins yeast infection Drug Allergy Active Results Component Value Reference Range Notes X ray : Hand, left Reviewed date:12/11/2023 08:55:27 AM Interpretation:degenerative changes, mild osteopenia Performing Lab: Notes/Report: degenerative changes, mild osteopenia Medications Medication SIG (Take, Route, Frequency, Duration) Notes Start Date End Date Status Clobetasol Propionate 0.05 % 1 application Externally Twice a day 2024 Active Womens Multivitamin - as directed Orally Active Flonase Allergy Relief 50 MCG/ACT 1 spray in each nostril Nasally Once a day 06/11/2023 Active Align 4 MG 1 cap(s) orally once a day Active Problems Problem Type SNOMED Code ICD Code Onset Dates Problem Status W/U Status Risk Notes Problem COPD - Chronic obstructive pulmonary disease (11721980) COPD (chronic obstructive pulmonary disease) (J44.9) Active confirmed Problem Abnormal mammogram (474653822) Abnormal mammogram (R92.8) Active confirmed Problem Seasonal allergy (675180117) Seasonal allergies (J30.2) Active confirmed Problem Tobacco use (361157178) Tobacco use disorder (Z72.0) Active confirmed Problem Acute exacerbation of chronic obstructive airways disease (873845515) COPD exacerbation (J44.1) Active confirmed Problem Thyromegaly (2098974) Thyromegaly (E04.9) Active confirmed Problem Deviated nasal septum (755398493) Deviated septum (J34.2) Active confirmed Problem Tobacco use (789351990) Tobacco use disorder (F17.200) Active confirmed Vital Signs Heart Rate 81 /min 06/22/2024 Blood pressure diastolic 78 mm Hg 06/22/2024 Height 63.50 in 06/22/2024 Blood pressure systolic 122 mm Hg 06/22/2024 Weight 118.4 lbs 06/22/2024 BMI 20.64 kg/m2 06/22/2024 Encounters Encounter Location Date Provider Diagnosis [facility] [facility] [address] [place], [place] [id number] 12/10/2023 Carlo Lancaster Left hand pain M79.642 [facility] [facility] [address] [place] [id number] 04/26/2024 Shital Weldon Cellulitis L03.90 an d Gas pain R14.1 [facility] [facility] [address] [place], [place] [id number] 05/07/2024 Erum Crowdy Cellulitis L03.90 an d Dermatitis L30.9 [facility] [facility] [address] [place] [phone] 2024 Shital Weldon Dermatitis L30.9 [facility] [facility] [address] [place] [id number] 06/22/2024 Shital Weldon Contact dermatitis L25.9 and BMI 20.0-20.9, adult Z68.20 [facility] [address] [facility] [address] [place], [place] [id number] 12/11/2023 Erum Crowdy [facility] [facility] [address] [place] [id number] 05/03/2024 Shital Weldon [facility] [facility] [address] [place] [id number] 06/01/2024 R Js Bosch [facility] [facility] [facility] 36 [facility] [address] [place] [id number] 06/15/2024 Shital Weldon [facility] [address] [facility] 36 [facility] [address] [place] [id number] 11/09/2024 Ephraim Hinojosafleet Assessments Encounter Date Diagnosis (ICD Code) Assessment Notes Treatment Notes Treatment Clinical Notes Section Notes 12/10/2023 Left hand pain (ICD-10 - M79.642) 04/26/2024 Cellulitis (ICD-10 - L03.90) 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 2024 Dermatitis (ICD-10 - L30.9) will disc use of the plastic gloves; increased potency of steroid; will continue this [place] for 2 weeks; if not improved will need to see derm 06/22/2024 Contact dermatitis (ICD-10 - L25.9) will [...] 1 PPD-discussed smoking cessation Plan Of Treatment Pending Test Test Name Order Date Bone density 02/13/2023 Mammogram 11/10/2024 CT Scan : Chest, low dose 11/10/2024 CT Scan : Chest, low dose 02/13/2023 Insurance Providers Payer Name Payer Address Payer Phone Subscriber Number Group Number Insured Name Patient Relationship to Insured Coverage Start Date Coverage End Date MEDICARE PART B [address] [address] [place] [id number] Chaya Ochoa Self - patient is the insured [address] [id number] Chaya Ochoa Self - patient is the insured Medical (General) History Medical History History ICD Code BP drops with anesthesia COPD Tobacco Addiction Colon Polyps allergic rhinitis Surgical History Surgery Date(Month/Year) Tubal Ligation Carpal Tunnel RT Wrist Repair 2018 C-scope/ polyps/ [place] 09/26/2021
== END 2024-11-18 23:59 | disposition home or self-care (01) ==
LOC: RAD 07:28
PROVIDERS: PCP Family Medicine; Visit Provider Family Medicine
DX: R91.1 Solitary pulmonary nodule (principal); Z12.2 Encounter for screening for malignant neoplasm of respiratory organs; Z87.891 Personal history of nicotine dependence
CPT/HCPCS: 71271

== ENCOUNTER 2024-11-24 07:51 | Outpatient (CLI) | payer MEDICARE, OTHER, SELFPAY ==
--- OUTSIDE RECORDS SUMMARY | 2024-04-26 11:15 | XMS_ITS ---
Author Organization [facility] Address [address] [facility] [address] [facility] [address] [place] [id number] Care Team Providers Care Strategic Account Executive Name Role Phone Ephraim Bosch Primary Care Provider Shital Weldon Unavailable [phone] Allergies Allergen (clinical drug ingredient) Drug/Non Drug Allergy documented on EMR Reaction Allergy Type Onset Date Status Substance with penicillin structure and antibacterial mechanism of action (substance) Penicillins yeast infection Drug Allergy Active REASON FOR VISIT Rash, Cracking on Hands Medications Medication SIG (Take, Route, Frequency, Duration) Notes Start Date End Date Status Cephalexin 500 MG 1 capsule Orally lynn ry 6 hrs; Duration: 10 day(s) 04/26/2024 Active Loratadine 10 MG 1 tablet Orally Once a day; Duration: 30 day(s) 06/11/2023 Not-Taking Flonase Allergy Relief 50 MCG/ACT 1 spray in each nostril Nasally Once a day 06/11/2023 Active Womens Multivitamin - as directed Orally Active Medrol 4 MG as directed orally daily; Duration: 6 days 04/26/2024 Active Align 4 MG 1 cap(s) orally once a day Active Vital Signs Blood pressure systolic 120 mm Hg 04/26/19 25 Blood pressure diastolic 74 mm Hg 025 Heart Rate 69 /min 04/26/2024 Height 63.50 in 04/26/2024 Weight 119.2 lbs 04/26/2024 BMI 20.78 kg/m2 04/26/2024 Encounters Encounter Location Date Provider Diagnosis [facility] [address] [facility] [address] 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 04/26/2024 Gas pain (ICD-10 - R14.1) 2021 colonoscopy results reviewed; several polops removed; to another in 3 years ; she defers for now; reinforced fiber RX; to monitor stools Plan Of Treatment Medication Medication Name Sig Start Date Stop Date Notes Cephalexin 500 MG 1 capsule Orally lynn ry 6 hrs; Duration: 10 day(s) 04/26/2024 Medrol 4 MG as directed orally d aily; Duration: 6 days 04/26/2024 Align 4 MG 1 cap(s) orally once a day Treatment Notes Assessment Notes Cellulitis 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 Rash, Cracking on Hands. * HPI: D ermatology: 68 year old female presents with c/o rash P t is here today for rash and cracking on her rt hand. Pt sts it itches and oates and sts it is swollen as well. Pt sts this is the second time she has had something like this. Pt sts the first time she had it for a couple of weeks and it went away and sts this time it is not going away. G astroenterology: c/o Abdominal Pain 2 abd pains few days apart. c/o Diarrhea a lternates with hard stools. c/o Blood in Stool i nfrequently. c/o Belching. c/o Constipation. c/o constipation. c/o Bloating. Denies : Nausea. D enies : Vomiting. black piece in her stool yesterday; smokes 1 PPD; + caffeine --4 cups coffee in AM; no NSAIDS. * ROS: D ERMATOLOGY: no R ilana. n o H alfie. G ASTROENTEROLOGY: no N ausea. n o V omiting. U ROLOGY: no D ifficulty urinating. n o B lood in urine. * Medical History: B P drops with anesthesia, COPD, Tobacco Addiction, Colon Polyps, Allergic rhinitis. * Surgical History: T ubal Ligation , Carpal Tunnel , RT Wrist Repair 2018, C-scope/ polyps/ [place] 09/26/2021. * Family History: F ather: 64 yrs, alcoholic. M other: 64 yrs, Hepatitis,. 1 brother(s) , 1 sister(s) . . * Social History: C URRENT TOBACCO USE S moking Status: Patient does smoke, packs per day: 1, number of cigarettes per day: 20, Since age of: 14, Smoking preference: cigarettes. C affeine: yes, frequency: coffee. Home smoke detector use: yes. Occupation: [employer]. Alcohol: No. * Medications: T aking Womens Multivitamin - Tablet as directed Orally , Taking Align 4 MG Capsule 1 cap(s) orally once a day , Taking Flonase Allergy Relief 50 MCG/ACT Suspension 1 spray in each nostril Nasally Once a day , Not-Taking Loratadine 10 MG Tablet 1 tablet Orally Once a day , Medication List reviewed and reconciled with the patient * Allergies: P enicillins: yeast infection . Objective: * Vitals: W t:119.2, Temp:98.3, BP:120/74, HR:69, O2 Sat:98% on RA, Nurse:gonsalo, Ht: 63.50, BMI:20.78. * Examination: G eneral Examination: General Appearance: NAD, appears healthy, alert, pleasant. H eart: RRR. L ungs: CTAB A&P. A bdomen: bowel sounds present, soft and nontender, no organomegaly or masses, no guarding or rigidity. N eurologic Exam: alert and oriented. S kin: b ilateral hands with erythema with the right worse than the left; right hand is also with edema; 2 well healed cracks on fingers. Assessment: * Assessment: 1. C agustin - L03.90 (Primary) 2 . G as pain - R14.1 Plan: * Treatment: 2. G as pain Continue Align Capsule, 4 MG, 1 cap(s), orally, once a day. Notes: 2021 colonoscopy results reviewed; several polops removed; to another in 3 years ; she defers for now; reinforced fiber RX; to monitor stools * Procedure Codes: G 2211 Complex e/m visit add on, 3074F SYST BP LT 130 MM HG, 3078F DIAST BP < 80 MM HG * Follow Up: 3 Weeks * Images: Billing Information: * Visit Code: 80400 Office Visit, Est Pt., Level 3. * Procedure Codes: G2211 Complex e/m visit add on. 3074F SYST BP LT 130 MM HG. 3078F DIAST BP < 80 MM HG. * Electronic signature of Heidi Weldon APRN on 11/24/2024 at 07:54 AM EDT Sign off status: Pending * Provider: TERRA Torrez Date: 04/26/2024 Generated for Eneida simms/Melida/Mariana on: 0 11/24/2024 07:54 AM EDT History and Physical Notes * HPI (History of Present Illness) Category Sub-Category Detail Notes Category Not es Dermatology rash Pt is here today for rash and cracking on her rt hand. Pt sts it itches and oates and sts it is swollen as well. Pt sts this is the second time she has had something like this. Pt sts the first time she had it for a couple of weeks and it went away and sts this time it is not going away Gastroenterology Vomiting black piece in her stool yesterday; smokes 1 PPD; + caffeine --4 cups coffee in AM; no NSAIDS Abdominal Pain 2 abd pains few days apart Diarrhea alternates with hard stools Blood in Stool infrequently Nausea Constipation Belching constipation Bloating Examination Category Sub-Category Detail Notes Category Not es General Examination Heart: RRR Lungs: CTAB A&P Abdomen: bowel sounds present , soft and nontender, no organomegaly or masses, no guarding or rigidity General Appearance: NAD, appears healthy , alert, pleasant Skin: bilateral hands with erythema with the right worse than the left; right hand is also with edema; 2 well healed cracks on fingers Neurologic Exam: alert and oriented
--- OUTSIDE RECORDS SUMMARY | 2024-05-07 06:15 | XMS_ITS ---
Author Organization [facility] Address [address] [facility] [address] [place] [id number] Care Team Providers Care Microfilmer Name Role Phone Ephraim Bosch Primary Care Provider [phone] Erum Mancuso [phone] Allergies Allergen (clinical drug ingredient) Drug/Non Drug Allergy documented on EMR Reaction Allergy Type Onset Date Status Substance with penicillin structure and antibacterial mechanism of action (substance) Penicillins yeast infection Drug Allergy Active REASON FOR VISIT poss infection in hand Medications Medication SIG (Take, Route, Frequency, Duration) Notes Start Date End Date Status Bactrim DS 800-160 MG 1 tablet Orally Tw o times a day; Duration: 10 day(s) 05/07/2024 Active Flonase Allergy Relief 50 MCG/ACT 1 spray in each nostril Nasally Once a day 06/11/2023 Active Align 4 MG 1 cap(s) orally once a day Active Womens Multivitamin - as directed Orally Active Triamcinolone Acetonide 0.1 % 1 application Externally three times a day, prn 05/07/2024 Active Vital Signs Blood pressure systolic 120 mm Hg 05/07/19 25 Blood pressure diastolic 80 mm Hg 025 Heart Rate 82 /min 05/07/2024 Height 63.50 in 05/07/2024 Weight 120.2 lbs 05/07/2024 BMI 20.96 kg/m2 05/07/2024 Encounters Encounter Location Date Provider Diagnosis [facility] [address] 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 Plan Of Treatment Medication Medication Name Sig Start Date Stop Date Notes Bactrim DS 800-160 MG 1 tablet Orally Tw o times a day; Duration: 10 day(s) 05/07/2024 Triamcinolone Acetonide 0.1 % 1 applicat ion Externally three times a day, prn 05/07/2024 Treatment Notes Assessment Notes Cellulitis Will wear clean glov es when working with the animals Dermatitis Can mix triamcinolon e with vanicream and apply to hands a few times a day and at night. Next Appt Details Follow Up: keep f/u, Reason: Progress Notes * Chaya GARCIADOB:[birth year] (69 yo F)Acc No.[id number]:05/07/2024 Progress Notes Patient: Chaya DOWNEY Provider: GERRY Alvarenga :1955 A ge:68 Y S ex:Female Date:05/07/2024 Address:[address], [place], [id number] Pcp:Ephraim Bosch Subjective: * Chief Complaints: * 1 . Poss infection in hand. * HPI: D ermatology: 68 year old female presents with c/o rash P t is here for a check up on her hands. Pt sts she was given antibiotics at her last visit and sts it did help but now she is worried they are infected again. Pt sts her rt hand is still worse than the left. c/o redness. c/o itching. c/o Dry Skin. * ROS: D ERMATOLOGY: no R ilana. [...] coffee. Home smoke detector use: yes. Occupation: [employer]. Alcohol: No. * Medications: T aking Womens Multivitamin - Tablet as directed Orally , Taking Flonase Allergy Relief 50 MCG/ACT Suspension 1 spray in each nostril Nasally Once a day , Taking Align 4 MG Capsule 1 cap(s) orally once a day , Medication List reviewed and reconciled with the patient * Allergies: P enicillins: yeast infection . Objective: * Vitals: W t:120.2, Temp:97.9, BP:120/80, HR:82, O2 Sat:98% on RA, Nurse:juan luis, Ht: 63.50, BMI:20.96. * Examination: G eneral Examination: General Appearance: N AD. C hest: n ormal shape and expansion. H eart: R SR. L ungs: c lear to auscultation. S kin: bilateral hands with erythematous xerotic patches, there are some open wounds on the fingers on the right hand with some surrounding erythema and crusting. Assessment: * Assessment: 1. C ellulitis - L03.90 (Primary) 2 . D ermatitis - L30.9 Plan: * Treatment: 2. D ermatitis Start Triamcinolone Acetonide Cream, 0.1 %, 1 application, Externally, three times a day, prn, 454 grams, Refills 1. Notes: Can mix triamcinolone with vanicream and apply to hands a few times a day and at night. * Procedure Codes: G 2211 Complex e/m visit add on, 3074F SYST BP LT 130 MM HG, 3079F DIAST BP 80-89 MM HG * Follow Up: corona franciscop f/u * Images: Billing Information: * Visit Code: 63230 Office Visit, Est Pt., Level 3. * Procedure Codes: G2211 Complex e/m visit add on. 3074F SYST BP LT 130 MM HG. 3079F DIAST BP 80-89 MM HG. * Electronic signature of GERRY Parekh on 11/24/2024 at 07:54 AM EDT Sign off status: Pending * Provider: GERRY Alvarenga Date: 0 05/07/2024 Generated for Eneida simms/Melida/eTransmitting on: 0 11/24/2024 07:54 AM EDT History and Physical Notes * HPI (History of Present Illness) Category Sub-Category Detail Notes Category Not es Dermatology redness itching rash Pt is here for a maria d ck up on her hands. Pt sts she was given antibiotics at her last visit and sts it did help but now she is worried they are infected again. Pt sts her rt hand is still worse than the left Dry Skin Examination Category Sub-Category Detail Notes Category Not es General Examination Heart: RSR Lungs: clear to auscultatio n General Appearance: NAD Skin: bilateral hands with erythematous xerotic patches, there are some open wounds on the fingers on the right hand with some surrounding erythema and crusting Chest: normal shape and exp ansion
--- OUTSIDE RECORDS SUMMARY | 2024-05-18 06:00 | XMS_ITS ---
Author Organization [facility] Address [facility] [address] [place] [phone] Care Team Providers Care Smoke Control Supervisor Name Role Phone Ephraim Bosch Primary Care Provider Shital Weldon [phone] Allergies Allergen (clinical drug ingredient) Drug/Non Drug [...] Encounter Location Date Provider Diagnosis [facility] [address] [place] [phone] 2024 Shital Weldon Dermatitis L30.9 Assessments Encounter [...] Notes * Chaya GARCIADOB:[birth year] (69 yo F)Acc No.[id number]:2024 Patient: Chaya DOWNEY Provider: TERRA Torrez :1955 A ge:69 Y S ex:Female Date:2024 Address:[facility] [place] [address] , [facility] [id number] Pcp:Ephraim Bosch Subjective: * Chief Complaints: * [...] coffee. Home smoke detector use: yes. Occupation: [employer]. Alcohol: No. * Medications: T aking Womens [...] * Images: Billing Information: * Visit Code: 64466 Office Visit, Est Pt., Level 3. * Procedure Codes: G2211 Complex e/m visit add on. 3074F SYST BP LT 130 MM HG. 3078F DIAST BP < 80 MM HG. * Electronic signature of Heidi Weldon APRN on 11/24/2024 at 07:54 AM EDT Sign off status: Pending * Provider: TERRA Torrez Date: 0 2024 Generated for Eneida simms/Melida/Manuelitoitting on: 0 11/24/2024 07:54 AM EDT History [...]
--- OUTSIDE RECORDS SUMMARY | 2024-06-22 06:00 | XMS_ITS ---
Author Organization [place] Address [address] [facility] [address] [place] [id number] Care Team Providers Care Renal Dietitian Name Role Phone Ephraim Bosch Primary Care Provider Shital Weldon Unavailable [phone] Allergies Allergen (clinical drug ingredient) Drug/Non Drug Allergy documented on EMR Reaction Allergy Type Onset Date Status Substance with penicillin structure and antibacterial mechanism of action (substance) Penicillins yeast infection Drug Allergy Active REASON FOR VISIT dermititis f/u Medications Medication SIG (Take, Route, Frequency, Duration) Notes Start Date End Date Status Clobetasol Propionate 0.05 % 1 application Externally Twice a day 2024 Active Womens Multivitamin - as directed Orally Active Flonase Allergy Relief 50 MCG/ACT 1 spray in each nostril Nasally Once a day 06/11/2023 Active Align 4 MG 1 cap(s) orally once a day Active Vital Signs Blood pressure systolic 122 mm Hg 06/23/19 25 Blood pressure diastolic 78 mm Hg 025 Heart Rate 81 /min 06/22/2024 Height 63.50 in 06/22/2024 Weight 118.4 lbs 06/22/2024 BMI 20.64 kg/m2 06/22/2024 Encounters Encounter Location Date Provider Diagnosis [place] [facility] [address] [place] [id number] 06/22/2024 Shital Weldon Contact dermatitis L25.9 and BMI 20.0-20.9, adult Z68.20 Assessments Encounter Date Diagnosis (ICD Code) Assessment Notes Treatment Notes Treatment Clinical Notes Section Notes 06/22/2024 Contact dermatitis (ICD-10 - L25.9) will continue with steriod cream ; has not used in over a week; 2 weeks on and 1 week off; to use aveeno cream after washing and prn; to wash with warm water; reviewed all activities with 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; 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; to wear gloves with all these duties and wash hands after ; will keep Derm appt for now 06/22/2024 BMI 20.0-20.9, adult (ICD-10 - Z68.20) 06/22/2024 Other encouraged to R TC for well exam; she will need fasting labs, imaging, colonoscopy, immunizations , mammogram; she smokes 1 PPD-discussed smoking cessation Plan Of Treatment Medication Medication Name Sig Start Date Stop Date Notes Clobetasol Propionate 0.05 % 1 applicati on Externally Twice a day 2024 Treatment Notes Assessment Notes Contact dermatitis will continue with s teriod cream ; has not used in over a week; 2 weeks on and 1 week off; to use aveeno cream after washing and prn; to wash with warm water; reviewed all activities with 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; 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 Dermititis f/u. * HPI: D ermatology: 69 year old female presents with c/o rash P t presents today to follow up on dermatitis on her hands. Pt sts that she cannot get into dermatology until October. Pt would like to know if she should continue to use the cream until she is seen by dermatology or what would be recommended for her. * ROS: D ERMATOLOGY: no R ilana. [...] coffee. Home smoke detector use: yes. Occupation: [employer]. Alcohol: No. * Medications: T aking Womens Multivitamin - Tablet as directed Orally , Taking Flonase Allergy Relief 50 MCG/ACT Suspension 1 spray in each nostril Nasally Once a day , Taking Align 4 MG Capsule 1 cap(s) orally once a day , Taking Clobetasol Propionate 0.05 % Ointment 1 application Externally Twice a day , Medication List reviewed and reconciled with the patient * Allergies: P enicillins: yeast infection. Objective: * Vitals: W t: 118.4, Temp: 97.9, BP: 122/78, HR: 81, Nurse: ARIANNE, Ht: 63.50, BMI:20.64. * Examination: G eneral Examination: General Appearance: NAD, appears healthy, alert, well nourished and hydrated. S kin: bilateral hands appear much better; erythma is less and splotchy; no papules and no crackles; skin is dry; no edema. Assessment: * Assessment: 1. C ontact dermatitis - L25.9 (Primary) S pecify :bilateral hands 2 . B [place] 20.0-20.9, adult - Z68.20 Plan: * Treatment: 2. O thers Notes: encouraged to RTC for well exam; she will need fasting labs, imaging, colonoscopy, immunizations , mammogram; she smokes 1 PPD-discussed smoking cessation * Procedure Codes: G 2211 Complex e/m visit add on, 3074F SYST BP LT 130 MM HG, 3078F DIAST BP < 80 MM HG * Follow Up: p rn * Images: Billing Information: * Visit Code: 08724 Office Visit, Est Pt., Level 3. * Procedure Codes: G2211 Complex e/m visit add on. 3074F SYST BP LT 130 MM HG. 3078F DIAST BP < 80 MM HG. * Electronic signature of Heidi Weldon APRN on 11/24/2024 at 07:53 AM EDT Sign off status: Pending * Provider: TERRA Torrez Date: 0 06/22/2024 Generated for Eneida simms/Melida/Manuelitoitting on: 0 11/24/2024 07:53 AM EDT History and Physical Notes * HPI (History of Present Illness) Category Sub-Category Detail Notes Category Not es [facility]. Pt sts that she cannot get into dermatology until October. Pt would like to know if she should continue to use the cream until she is seen by dermatology or what would be recommended for her Examination Category Sub-Category Detail Notes Category Not es General Examination General Appearance: NAD, collins ears healthy, alert, well nourished and hydrated Skin: bilateral hands appe ar much better; erythma is less and splotchy; no papules and no crackles; skin is dry; no edema
--- NOTE | 2024-11-24 07:54 | MM_ITS ---
PROCEDURE INFORMATION: Exam: MG Bilateral Screening 3D Mammography Exam date and time: 11/24/2024 8:06 AM Age: 69 years old Clinical indication: Screening examination TECHNIQUE: Imaging protocol: Bilateral Screening tomosynthesis and 2D mammography including computer-aided detection (CAD) when performed. COMPARISON: MG MM DIG MAMM DX UNILAT LT CAD 08/21/2023 12:50 PM FINDINGS: MAMMOGRAPHY: Breast composition: There are scattered areas of fibroglandular density. Mass: None. Architectural distortion: None. Calcifications: No suspicious calcifications. Asymmetric density: None. Skin thickening: None. Axillary adenopathy: None. IMPRESSION: No mammographic evidence of malignancy. Annual screening is recommended unless otherwise clinically indicated. ASSESSMENT: BI-RADS Category 1: Negative.
--- OUTSIDE RECORDS SUMMARY | 2024-11-24 07:54 | XMS_ITS | Patient Health Record ---
Author Organization [facility] Address [address] [place] [phone] Care Team Providers Care Energy Professional Name Role Phone Ephraim Bosch Primary Care Provider Carlo Healy Unavailable [phone] Shital Weldon Unavailable [phone] Erum Mancuso Unavailable [phone] Allergies Allergen (clinical drug ingredient) Drug/Non Drug Allergy documented on EMR Reaction Allergy Type Onset Date Status Substance with penicillin structure and antibacterial mechanism of action (substance) Penicillins yeast infection Drug Allergy Active Results Component Value Reference Range Notes X ray : Hand, left Reviewed date:12/11/2023 08:55:27 AM Interpretation:degenerative changes, mild osteopenia Performing Lab: Notes/Report: degenerative changes, mild osteopenia CT Scan : Chest, low dose Reviewed date:11/19/2024 09:21:43 PM Interpretation:stable nodule; moderate emphysema Performing Lab: Notes/Report: stable nodule; moderate emphysema Medications Medication SIG (Take, Route, Frequency, Duration) [...] Problem COPD - Chronic obstructive pulmonary disease (80404504) COPD (chronic obstructive pulmonary disease) (J44.9) Active confirmed Problem Abnormal mammogram (187820639) Abnormal mammogram (R92.8) Active confirmed Problem Seasonal allergy (927046899) Seasonal allergies (J30.2) Active confirmed Problem Tobacco use (683722510) Tobacco use disorder (Z72.0) Active confirmed Problem Acute exacerbation of chronic obstructive airways disease (254420429) COPD exacerbation (J44.1) Active confirmed Problem Thyromegaly (1088812) Thyromegaly (E04.9) Active confirmed Problem Deviated nasal septum (261309642) Deviated septum (J34.2) Active confirmed Problem Tobacco use (127055709) Tobacco use disorder (F17.200) Active confirmed Vital Signs Heart Rate 81 /min 06/22/2024 Blood pressure diastolic 78 mm Hg 06/22/2024 Height 63.50 in 06/22/2024 Blood pressure systolic 122 mm Hg 06/22/2024 Weight 118.4 lbs 06/22/2024 BMI 20.64 kg/m2 06/22/2024 Encounters Encounter Location Date Provider Diagnosis [facility] [facility] [address] [place], [place] [id number] 12/10/2023 Carlo Larsen Left hand pain M79.642 [facility] [address] [place], [place] [id number] 04/26/2024 Shital Weldon Cellulitis L03.90 an d Gas pain R14.1 [facility] [facility] [address] [place], [place] [id number] 05/07/2024 Erum Crowdy Cellulitis L03.90 an d Dermatitis L30.9 [facility] [facility] [address] [place], [place] [id number] 2024 Shital Weldon Dermatitis L30.9 [facility] [facility] [address] [place], [place] [id number] 06/22/2024 Shital Weldon Contact dermatitis L25.9 and BMI 20.0-20.9, adult Z68.20 [facility] [facility] [address] [place], [place] [id number] 11/19/2024 Ephraim Bosch [facility] [facility] [address] [place], [place] [id number] 12/11/2023 Erum Mancuso [facility] [address] [facility] [address] [place], [place] [id number] 05/03/2024 Shital Weldon [facility] [address] [place], [place] [id number] 06/01/2024 Ephraim Hinojosafleet [facility] [address] [facility] [address] [place], [place] [id number] 06/15/2024 Shital Weldon [facility] [address] [facility] [address] [place], [place] [id number] 11/09/2024 R Js Bosch Assessments Encounter Date Diagnosis (ICD Code) Assessment [...] now; reinforced fiber RX; to monitor stools 2024 Dermatitis (ICD-10 - L30.9) will disc [...] 06/22/2024 BMI 20.0-20.9, adult (ICD-10 - Z68.20) 05/07/2024 Cellulitis (ICD-10 - L03.90) 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 06/22/2024 Other encouraged to R TC for [...] Date MEDICARE PART B [address] [address] [place] [id number] [id number] Chaya Ochoa Self - patient is the insured [address] [id number] Chaya Ochoa Self - patient is the insured Medical (General) History Medical History History ICD Code BP drops with anesthesia COPD Tobacco Addiction Colon Polyps allergic rhinitis Surgical History Surgery Date(Month/Year) Tubal Ligation Carpal Tunnel RT Wrist Repair 2018 C-scope/ polyps/ [place] 09/26/2021
== END 2024-11-24 23:59 | disposition home or self-care (01) ==
LOC: RAD 07:52
PROVIDERS: PCP Family Medicine; Visit Provider Family Medicine
DX: Z12.31 Encounter for screening mammogram for malignant neoplasm of breast (principal); R92.323 Mammographic fibroglandular density, bilateral breasts
CPT/HCPCS: 77063; 77067